=== PATIENT | male | born 1930 | race Caucasian/White ===

== ENCOUNTER 2016-12-02 15:45 | Emergency (ER) | payer OTHER, BC ==
[2016-12-02 16:06] VITALS: BP 116/78; PULSE 67; TEMP 97.8; BMI 31.5
--- NOTE | 2016-12-02 16:09 | PDOC ---
History of Present Illness - History of Present Illness Initial Comments: 12/02/16 16:18 The patient is an 86 year old male with a past medical history of hypertension, aortic stenosis( on aspirin), gout, referred to the emergency department by his primary physician Dr. Saunders, with a complaint of right foot swelling and redness for 5 days. Patient banged his ankle 4-5 days ago on carts at [employer]. Since banging his ankle , patient reports the pain and swelling had remained constant. Patient states that he developed redness two days ago which has somewhat improved on its own . Patient denies fever, chills, diaphoresis. Denies radiating pain up the leg or calf soreness. Edgar has been ambulating on his ankle with no assistive tools. Patient was scheduled to have a TAVR tomorrow PCP: Berny Saunders Office: <Issa Ortiz - Last Filed: 12/02/16 16:18> <Vandana Gan - Last Filed: 12/04/16 21:47> - General Chief Complaint: Redness To Affected Area Stated Complaint: RT FOOT SWELLING, REDNESS, H/O INJURY Time Seen by Provider: 12/02/16 16:03 Past History <Issa Ortiz - Last Filed: 12/02/16 16:18> - Past Medical History Cardiac Disorders: Yes (CAD) COPD: Yes (EMPHYSEMA) HTN: Yes Hypercholesterolemia: Yes Suicide Attempt (Hx): No - Surgical History Abdominal Surgery: Yes (HERNIA REPAIR) - Immunization History Td Vaccination: Yes - Psycho/Social/Smoking Cessation Hx Anxiety: No Suicidal Ideation: No Smoking Status: No Smoking History: Former smoker Have you smoked in the past 12 months: No Number of Cigarettes Smoked Daily: 0 If you are a former smoker, when did you quit?: 25 YEARS Information on smoking cessation initiated: No Hx Alcohol Use: Yes (occasional) Drug/Substance Use Hx: No Substance Use Type: None Hx Substance Use Treatment: No <Vandana Gan - Last Filed: 12/04/16 21:47> - Past Medical History Allergies/Adverse Reactions: Allergies Allergy/AdvReac Type Severity Reaction Status Date / Time Penicillins Allergy Severe anaphylaxis Verified 12/02/16 15:50 amoxicillin trihydrate Allergy Verified 12/02/16 15:50 [From Augmentin] potassium clavulanate Allergy Verified 12/02/16 15:50 [From Augmentin] dipyridamole [From Aggrenox] AdvReac unable to Verified 12/02/16 15:50 tolerate bactrim ds Allergy Intermediate Rash Uncoded 12/02/16 15:50 Home Medications: Ambulatory Orders Albuterol 0.083% Nebulizer Zoe [Ventolin 0.083% Nebulizer Soln -] 1 neb NEB QID 04/03/15 Budesonide/Formeterol Fumarate [SYMBICORT 160/4.5mcg -] 1 inh PO DAILY PRN 04/03 Tiotropium [place] [Spiriva] 1 inh IH DAILY 04/03/15 Clopidogrel Bisulfate [Plavix] 75 mg PO DAILY #7 tablet 11/11/16 Furosemide 40 mg PO 3tablets daily tablet 11/11/16 Rosuvastatin Calcium [Crestor] 20 mg PO DAILY tablet 11/11/16 Allopurinol [Zyloprim -] 200 mg PO DAILY 12/02/16 Aspirin [Aspirin EC] 81 mg PO DAILY 12/02/16 Potassium Chloride [K-Dur -] 10 meq PO DAILY 12/02/16 Tramadol HCl [Ultram] 50 mg PO TID PRN #10 tablet MDD 3 tabs 12/02/16 Review of Systems - Review of Systems Comments:: 12/02/16 16:19 GENERAL/CONSTITUTIONAL: No fever or chills. No weakness. HEAD, EYES, EARS, NOSE AND THROAT: No change in vision. No ear pain or discharge. No sore throat. CARDIOVASCULAR: No chest pain or shortness of breath. RESPIRATORY: No cough, wheezing, or hemoptysis. GASTROINTESTINAL: No nausea, vomiting, diarrhea or constipation. GENITOURINARY: No dysuria, frequency, or change in urination. MUSCULOSKELETAL: Yes: right ankle joint swelling or pain. No neck or back pain. SKIN: Yes: Right ankle redness No rash NEUROLOGIC: No headache, vertigo, loss of consciousness, or change in strength/ sensation. ENDOCRINE: No increased thirst. No abnormal weight change. HEMATOLOGIC/LYMPHATIC: No anemia, easy bleeding, or history of blood clots. ALLERGIC/IMMUNOLOGIC: No hives or skin allergy. <Issa Ortiz - Last Filed: 12/02/16 16:18> *Physical Exam - Vital Signs Last Vital Signs Temp Pulse Resp BP Pulse Ox 97.8 F 67 18 116/78 96 12/02/16 15:45 12/02/16 15:45 12/02/16 15:45 12/02/16 15:45 12/02/16 15:45 <Issa Ortiz - Last Filed: 12/02/16 16:18> - Vital Signs Last Vital Signs Temp Pulse Resp BP Pulse Ox 97.8 F 67 18 116/78 96 12/02/16 15:45 12/02/16 15:45 12/02/16 15:45 12/02/16 15:45 12/02/16 15:45 - Physical Exam Comments: GENERAL: Awake, alert, and fully oriented, in no acute distress HEAD: No signs of trauma EYES: PERRLA, EOMI, sclera anicteric, conjunctiva clear ENT: Auricles normal inspection, hearing grossly normal, nares patent, oropharynx clear without exudates. Moist mucosa NECK: Normal ROM, supple, no lymphadenopathy, JVD, or masses LUNGS: Breath sounds equal, clear to auscultation bilaterally. No wheezes, and no crackles HEART: Regular rate and rhythm, normal S1 and S2, no murmurs, rubs or gallops ABDOMEN: Soft, nontender, normoactive bowel sounds. No guarding, no rebound. No masses EXTREMITIES: Normal range of motion. No clubbing or cyanosis. No cords. +R foot erythema, ecchymosis to toes 2-5. +Tenderness to R lateral malleolus. NEUROLOGICAL: Cranial nerves II through XII grossly intact. Normal speech. + Antalgic gait. SKIN: Warm, Dry, normal turgor, no rashes or lesions noted. <Vandana Gan - Last Filed: 12/04/16 21:47> ED Treatment Course - LABORATORY CBC & Chemistry Diagram: 12/02/16 18:30 12/02/16 18:30 <Vandana Gan - Last Filed: 12/04/16 21:47> Medical Decision Making - Medical Decision Making 12/02/16 19:[address] Landry at shift change. Symptoms have been improving since the injury (the redness has receded), which would imply this is not a cellulitis. More likely to be a sprain or fx based on the ecchymosis noted in the toes. Still awaiting XR results. Labs with no white count. Will discuss with Dr. Saunders when XR reading is complete. <Vandana Gan - Last Filed: 12/04/16 21:47> *DC/Admit/Observation/Transfer - Attestations Scribe Attestion: 12/02/16 16:19 Documentation prepared by Issa Ortiz, acting as medical scheduler for Vandana Gan MD <Issa Ortiz - Last Filed: 12/02/16 16:18> <Vandana Gan - Last Filed: 12/04/16 21:47> Diagnosis at time of Disposition: Contusion of right ankle Qualifiers: Encounter type: initial encounter Qualified Code(s): S90.01XA - Contusion of right ankle, initial encounter Right ankle sprain Qualifiers: Encounter type: initial encounter Involved ligament of ankle: unspecified ligament Qualified Code(s): S93.401A - Sprain of unspecified ligament of right ankle, initial encounter - Discharge Dispostion Disposition: HOME Condition at time of disposition: Stable - Prescriptions Prescriptions: Tramadol HCl [Ultram] 50 mg PO TID PRN #10 tablet MDD 3 tabs PRN Reason: Severe Pain - Referrals Referrals: Berny Saunders MD [Primary Care Provider] - 3 days - Patient Instructions Printed Discharge Instructions: DI for Contusion Additional Instructions: forrest wrap during day/remove at night elevate right lower leg as much as possible return to ER if pain/swelling worsens followup with Dr Saunders within the next 2-3 days
[2016-12-02 18:47] LABS: BASOPHIL 1.8 % (0-2.0); EOSINOPHIL 2.9 % (0-4.5); MCH 29.1 pg (25.7-33.7); MCHC 33.4 g/dl (32.0-35.9); MEAN CELL VOLUME 87.1 fl (80-96); MEAN PLT VOLUME 9.1 fl (7.5-11.1); NEUTROPHILS 67.5 % (42.8-82.8); PLATELET COUNT 159 K/MM3 (134-434); RDW 13.5 % (11.9-15.9); WHITE BLOOD COUNT 8.9 K/mm3 (4.0-10.0)
[2016-12-02 18:59] LABS: ALBUMIN 3.8 g/dl (3.5-5.0); ALK PHOS 75 U/L (32-92); ANION GAP 5 (8-16); CALCIUM 10.2 mg/dl (8.4-10.2); CO2 31 mmol/L (22-28); CREATININE 0.9 mg/dl (0.6-1.3); GLUCOSE,RANDOM 170 mg/dl (74-106); SGOT/AST 30 U/L (10-42); SGPT/ALT 56 U/L (10-40); TOT PROT 6.9 g/dl (6.4-8.3)
--- NOTE | 2016-12-02 19:19 | PDOC ---
*Physical Exam - Vital Signs Last Vital Signs Temp Pulse Resp BP Pulse Ox 97.8 F 67 18 116/78 96 12/02/16 15:45 12/02/16 15:45 12/02/16 15:45 12/02/16 15:45 12/02/16 15:45 <Issa Ortiz - Last Filed: 12/02/16 20:20> - Vital Signs Last Vital Signs Temp Pulse Resp BP Pulse Ox 97.8 F 67 18 116/78 96 12/02/16 15:45 12/02/16 15:45 12/02/16 15:45 12/02/16 15:45 12/02/16 15:45 <Luanne Landry - Last Filed: 12/03/16 01:29> ED Treatment Course - LABORATORY CBC & Chemistry Diagram: 12/02/16 18:30 12/02/16 18:30 - ADDITIONAL ORDERS Additional order review: Laboratory Results 12/02/16 18:30 Sodium 133 L Potassium 3.6 Chloride 97 L Carbon Dioxide 31 H Anion Gap 5 L BUN 20 H Creatinine 0.9 Creat Clearance w eGFR > 60 Random Glucose 170 H Calcium 10.2 Total Bilirubin 2.0 H D AST 30 D ALT 56 H D Alkaline Phosphatase 75 D Total Protein 6.9 Albumin 3.8 12/02/16 18:30 RBC 5.37 MCV 87.1 MCHC 33.4 RDW 13.5 MPV 9.1 D Neutrophils % 67.5 Lymphocytes % 23.2 Monocytes % 4.6 Eosinophils % 2.9 Basophils % 1.8 - RADIOLOGY Radiology Studies Ordered: 12/02/16 20:20 RAD/ANKLE & FOOT-RIGHT Impression: No gross acute fracture or dislocation is identified. Soft tissue swelling Reported by Latasha Magaña <Issa Ortiz - Last Filed: 12/02/16 20:20> - LABORATORY CBC & Chemistry Diagram: 12/02/16 18:30 12/02/16 18:30 - ADDITIONAL ORDERS Additional order review: Laboratory Results 12/02/16 18:30 Sodium 133 L Potassium 3.6 Chloride 97 L Carbon Dioxide 31 H Anion Gap 5 L BUN 20 H Creatinine 0.9 Creat Clearance w eGFR > 60 Random Glucose 170 H Calcium 10.2 Total Bilirubin 2.0 H D AST 30 D ALT 56 H D Alkaline Phosphatase 75 D Total Protein 6.9 Albumin 3.8 12/02/16 18:30 RBC 5.37 MCV 87.1 MCHC 33.4 RDW 13.5 MPV 9.1 D Neutrophils % 67.5 Lymphocytes % 23.2 Monocytes % 4.6 Eosinophils % 2.9 Basophils % 1.8 <Luanne Landry - Last Filed: 12/03/16 01:29> Medical Decision Making - Medical Decision Making 12/02/16 20:17 PCP: Berny Saunders Office called at 19:41, will be paged PCP: Berny Saunders Office called at 20:00 will be paged PCP: Berny Saunders Cell phone called [phone]. Message left at 20:17 PCP: Berny Saunders called back, case discussed at 20:18 <Issa Ortiz - Last Filed: 12/02/16 20:20> - Medical Decision Making Laboratory values and x-ray results discussed with patient's PMD, Dr. Saunders. Although x-ray shows no evidence of fracture and WBC count is normal ( suggesting cellulitis not present), because the patient will not be able to ambulate normally after his cardiac surgery, Dr. Saunders recommending that patient postpone the surgery. He should continue to elevate the foot and follow-up with Dr. Saunders within the next 2-3 days. The patient asked for "stronger" pain medication then plain acetaminophen. Prescription for Ultram 50mg,(#10) to be used up to 3 times a day will be transmitted to patient's pharmacy. The patient should return to the ER if he has worsening pain/swelling/erythema of the foot. <Luanne Landry - Last Filed: 12/03/16 01:29> *DC/Admit/Observation/Transfer <Issa Ortiz - Last Filed: 12/02/16 20:20> <Luanne Landry - Last Filed: 12/03/16 01:29> Diagnosis at time of Disposition: Contusion of right ankle Qualifiers: Encounter type: initial encounter Qualified Code(s): S90.01XA - Contusion of right ankle, initial encounter Right ankle sprain Qualifiers: Encounter type: initial encounter Involved ligament of ankle: unspecified ligament Qualified Code(s): S93.401A - Sprain of unspecified ligament of right ankle, initial encounter - Discharge Dispostion Disposition: HOME Condition at time of disposition: Stable - Prescriptions Prescriptions: Tramadol HCl [Ultram] 50 mg PO TID PRN #10 tablet MDD 3 tabs PRN Reason: Severe Pain - Referrals Referrals: Berny Saunders MD [Primary Care Provider] - 3 days - Patient Instructions Printed Discharge Instructions: DI for Contusion Additional Instructions: forrest wrap during day/remove at night elevate right lower leg as much as possible return to ER if pain/swelling worsens followup with Dr Saunders within the next 2-3 days - Post Discharge Activity
== END 2016-12-02 20:32 | disposition home or self-care (01) ==
LOC: FER 15:45
DX: S93.401A Sprain of unspecified ligament of right ankle, initial encounter (principal); S90.01XA Contusion of right ankle, initial encounter; W22.8XXA Striking against or struck by other objects, initial encounter; Y93.9 Activity, unspecified; Y92.9 Unspecified place or not applicable; I10 Essential (primary) hypertension; I35.0 Nonrheumatic aortic (valve) stenosis; J44.9 Chronic obstructive pulmonary disease, unspecified; E78.00 Pure hypercholesterolemia, unspecified; Z87.891 Personal history of nicotine dependence; I25.10 Atherosclerotic heart disease of native coronary artery without angina pectoris
CPT/HCPCS: 36415; 73610-TC-RT; 73630-TC-RT; 80053; 85025; 87040; 99283-25

== ENCOUNTER 2016-12-13 16:28 | Inpatient (IN) | payer OTHER, BC ==
--- NOTE | 2016-12-13 16:37 | PDOC ---
History of Present Illness - General History Source: Patient, Family Exam Limitations: No Limitations - History of Present Illness Initial Comments: 12/13/16 16:54 The patient is a 86 year old male, with a significant past medical history of CAD, HTN, aortic stenosis, gout, Emphysema and HLD, who presents to the emergency department with right lower extremity swelling, pain and redness for the past 3 days. The patient is currently presenting in a wheelchair. The patient was last in the ED on 12/02/16 for the same symptoms, but they were not to this severity. The patient was discharged same day. He saw his PMD today who suggested he come to the ED for further evaluation. The patient denies chest pain, shortness of breath, headache and dizziness. Allergies: Aggrenox, augmentin, penicillin, bactrim Past surgical history: Abdominal hernia Social history: No alcohol, tobacco or drug use reported PMD - Dr. Berny Saunders <Jeremias Cevallos - Last Filed: 12/13/16 16:54> <Vandana Gan - Last Filed: 12/14/16 11:23> - General Chief Complaint: Edema Stated Complaint: RT LEG SWELLING, REDNESS Time Seen by Provider: 12/13/16 16:32 Past History <Jeremias Cevallos - Last Filed: 12/13/16 16:54> - Past Medical History Cardiac Disorders: Yes (CAD) COPD: Yes (EMPHYSEMA) HTN: Yes Hypercholesterolemia: Yes Suicide Attempt (Hx): No - Surgical History Abdominal Surgery: Yes (HERNIA REPAIR) - Immunization History Td Vaccination: Yes - Psycho/Social/Smoking Cessation Hx Anxiety: No Suicidal Ideation: No Smoking Status: No Smoking History: Former smoker Have you smoked in the past 12 months: No Number of Cigarettes Smoked Daily: 0 If you are a former smoker, when did you quit?: 25 YEARS Information on smoking cessation initiated: No Hx Alcohol Use: Yes (occasional) Drug/Substance Use Hx: No Substance Use Type: None Hx Substance Use Treatment: No <Vandana Gan - Last Filed: 12/14/16 11:23> - Past Medical History Allergies/Adverse Reactions: Allergies Allergy/AdvReac Type Severity Reaction Status Date / Time Penicillins Allergy Severe anaphylaxis Verified 12/02/16 15:50 amoxicillin trihydrate Allergy Verified 12/02/16 15:50 [From Augmentin] potassium clavulanate Allergy Verified 12/02/16 15:50 [From Augmentin] dipyridamole [From Aggrenox] AdvReac unable to Verified 12/02/16 15:50 tolerate bactrim ds Allergy Intermediate Rash Uncoded 12/02/16 15:50 Home Medications: Ambulatory Orders Albuterol 0.083% Nebulizer Zoe [Ventolin 0.083% Nebulizer Soln -] 1 neb NEB QID 04/03/15 Budesonide/Formeterol Fumarate [SYMBICORT 160/4.5mcg -] 1 inh PO DAILY PRN 04/03 Tiotropium [place] [Spiriva] 1 inh IH DAILY 04/03/15 Clopidogrel Bisulfate [Plavix] 75 mg PO DAILY #7 tablet 11/11/16 Furosemide 40 mg PO 3tablets daily tablet 11/11/16 Rosuvastatin Calcium [Crestor] 20 mg PO DAILY tablet 11/11/16 Allopurinol [Zyloprim -] 200 mg PO DAILY 12/02/16 Aspirin [Aspirin EC] 81 mg PO DAILY 12/02/16 Potassium Chloride [K-Dur -] 10 meq PO DAILY 12/02/16 Review of Systems - Review of Systems Able to Perform ROS?: Yes Comments:: 12/13/16 16:54 GENERAL/CONSTITUTIONAL: No fever or chills. No weakness. HEAD, EYES, EARS, NOSE AND THROAT: No change in vision. No ear pain or discharge. No sore throat. CARDIOVASCULAR: No chest pain or shortness of breath RESPIRATORY: No cough, wheezing, or hemoptysis. GASTROINTESTINAL: No nausea, vomiting, diarrhea or constipation. GENITOURINARY: No dysuria, frequency, or change in urination. MUSCULOSKELETAL: No joint or muscle swelling or pain. No neck or back pain. EXTREMITIES: +Right lower extremity erythema, pain and swelling SKIN: No rash NEUROLOGIC: No headache, vertigo, loss of consciousness, or change in strength/ sensation. ENDOCRINE: No increased thirst. No abnormal weight change HEMATOLOGIC/LYMPHATIC: No anemia, easy bleeding, or history of blood clots. ALLERGIC/IMMUNOLOGIC: No hives or skin allergy. <Jeremias Cevallos - Last Filed: 12/13/16 16:54> *Physical Exam - Vital Signs Last Vital Signs Temp Pulse Resp BP Pulse Ox 98.1 F 63 18 111/72 96 12/13/16 16:28 12/13/16 16:28 12/13/16 16:28 12/13/16 16:28 12/13/16 16:28 <MartJeremiasarslan Doylee - Last Filed: 12/13/16 16:54> - Vital Signs Last Vital Signs Temp Pulse Resp BP Pulse Ox 98.1 F 63 18 111/72 96 12/13/16 16:28 12/13/16 16:28 12/13/16 16:28 12/13/16 16:28 12/13/16 16:28 - Physical Exam Comments: GENERAL: Awake, alert, and fully oriented, in no acute distress HEAD: No signs of trauma EYES: PERRLA, EOMI, sclera anicteric, conjunctiva clear ENT: Auricles normal inspection, hearing grossly normal, nares patent, oropharynx clear without exudates. Moist mucosa NECK: Normal ROM, supple, no lymphadenopathy, JVD, or masses LUNGS: Breath sounds equal, clear to auscultation bilaterally. No wheezes, and no crackles HEART: Regular rate and rhythm, normal S1 and S2, no murmurs, rubs or gallops ABDOMEN: Soft, nontender, normoactive bowel sounds. No guarding, no rebound. No masses EXTREMITIES: Normal range of motion. 3+ pitting edema to RLE with erythema to the foot and ankle. NEUROLOGICAL: Cranial nerves II through XII grossly intact. Normal speech, normal gait SKIN: Warm, Dry, normal turgor, no rashes or lesions noted. <Vandana Gan - Last Filed: 12/14/16 11:23> ED Treatment Course - LABORATORY CBC & Chemistry Diagram: 12/14/16 07:32 12/14/16 07:32 <Vandana Gan - Last Filed: 12/14/16 11:23> Medical Decision Making - Medical Decision Making Patient is known to me from a prior ED visit where he presented with foot redness and swelling after hit by a grocery cart. At the time, the redness was receding, but now it has been increasing, spreading up his yancey, with increasing swelling as well. +Tenderness to palpation. On prior visit, the history was not typical for cellulitis (it had been improving), but now with the worsening redness, higher suspicion. DVT study was negative. Also, he had an outpatient MRI that only showed edema (no ortho injuries). Will treat with vanco and admit. <Vandana Gan - Last Filed: 12/14/16 11:23> *DC/Admit/Observation/Transfer - Attestations Scribe Attestion: 12/13/16 16:54 Documentation prepared by Jeremias Cevallos, acting as bilingual medical assistant for Vandana Gan MD <Jeremias Cevallos - Last Filed: 12/13/16 16:54> - Discharge Dispostion Admit: Yes <Vandana aGn - Last Filed: 12/14/16 11:23> Diagnosis at time of Disposition: Cellulitis Qualifiers: Site of cellulitis: extremity Site of cellulitis of extremity: lower extremity Laterality: right Qualified Code(s): L03.115 - Cellulitis of right lower limb - Discharge Dispostion Condition at time of disposition: Stable - Referrals
[2016-12-13 17:13] LABS: BASOPHIL 0.9 % (0-2.0); MCH 28.2 pg (25.7-33.7); MCHC 32.7 g/dl (32.0-35.9); MEAN CELL VOLUME 86.2 fl (80-96); NEUTROPHILS 70.6 % (42.8-82.8); PLATELET COUNT 181 K/MM3 (134-434); RDW 13.2 % (11.9-15.9); WHITE BLOOD COUNT 6.8 K/mm3 (4.0-10.0)
[2016-12-13 17:25] LABS: ACTIVATED PTT 30.1 SECONDS (24.0-38.9)
[2016-12-13 17:26] LABS: ALBUMIN 3.5 g/dl (3.5-5.0); BILIRUBIN,TOTAL 0.7 mg/dl (0.2-1.0); CALCIUM 9.7 mg/dl (8.4-10.2); CREATININE 1.2 mg/dl (0.6-1.3); TOT PROT 6.5 g/dl (6.4-8.3)
[2016-12-13 17:29] LABS: INR 1.04 (0.82-1.09); PROTHROMBIN TIME (PATIENT) 11.6 SEC (10.2-13.0)
[2016-12-13] MEDS ORDERED: VANCOMYCIN 1,000 MG in DEXTROSE 5%-WATER - 250 ML IVPB ONE (17:36)
[2016-12-13] MEDS ORDERED: INSULIN REGULAR HUMAN 100 UNITS/ML *VIAL SQ ONE (17:43)
[2016-12-13] MEDS ORDERED: INSULIN REGULAR HUMAN 100 UNITS/ML *VIAL ONE (17:50)
[2016-12-13] MEDS ORDERED: VANCOMYCIN 1,000 MG VIAL (RESTRICTED TO ID ONLY) ONE (17:50)
[2016-12-13] MEDS ORDERED: HEMOQUE TEST 1 EACH EACH ONE (18:32)
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
[2016-12-13 22:03] VITALS: BMI 33.2
[2016-12-13] MEDS: HEPARIN NA (PORCINE) 5,000 UNITS/ML 1ML VIAL SQ SCH (22:43)
[2016-12-13] MEDS ORDERED: diphenhydrAMINE HCL 25 MG CAPSULE (FP) PO ONE (23:44)
[2016-12-14] MEDS: HEPARIN NA (PORCINE) 5,000 UNITS/ML 1ML VIAL SQ SCH (05:55)
[2016-12-14] MEDS ORDERED: FUROSEMIDE 40 MG TABLET (FP) PO SCH (07:15)
[2016-12-14] MEDS: FUROSEMIDE 40 MG TABLET (FP) PO SCH (09:06)
[2016-12-14] MEDS: ALLOPURINOL 100 MG TABLET (FP) PO SCH (09:07)
[2016-12-14] MEDS: TIOTROPIUM BROMIDE 18 MCG/INH (DEVICE W/ 5 CAPSULES) IH SCH (09:07)
[2016-12-14] MEDS: POTASSIUM CHLORIDE TABS 10 MEQ TABLET.ER (FP) PO SCH (09:07)
[2016-12-14] MEDS: CLOPIDOGREL BISULFATE 75 MG TABLET (FP) PO SCH (09:07)
[2016-12-14] MEDS: ASPIRIN COATED 81 MG TABLET.EC PO SCH (09:07)
[2016-12-14 09:08] LABS: BASOPHIL 0.9 % (0-2.0); EOSINOPHIL 3.9 % (0-4.5); MCHC 33.5 g/dl (32.0-35.9); MEAN CELL VOLUME 86.5 fl (80-96); MEAN PLT VOLUME 9.3 fl (7.5-11.1); NEUTROPHILS 60.2 % (42.8-82.8); PLATELET COUNT 170 K/MM3 (134-434); WHITE BLOOD COUNT 6.3 K/mm3 (4.0-10.0)
[2016-12-14 09:17] LABS: CALCIUM 9.6 mg/dl (8.4-10.2)
--- NOTE | 2016-12-14 09:43 | PN ---
Progress Note (short form) - Note Progress Note: ID Consult dictated Cellulitis R LE Possible infected hematoma R LE Valvular heart disease PCN allergy Obtain BC Empiric vancomycin Elevation
[2016-12-14] MEDS ORDERED: VANCOMYCIN 1,250 MG in DEXTROSE 5%-WATER - 250 ML IVPB ONE (10:00)
[2016-12-14] MEDS ORDERED: VANCOMYCIN 1,250 MG in DEXTROSE 5%-WATER - 250 ML IVPB SCH (10:00)
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
[2016-12-14] MEDS: VANCOMYCIN 1,000 MG in DEXTROSE 5%-WATER - 250 ML IVPB SCH ×2 (11:51→21:56)
[2016-12-14] MEDS: ALBUTEROL SO4 0.083% IH SOL 2.5 MG/3 ML VIAL.NEB. NEB SCH ×2 (11:55→17:42)
--- NOTE | 2016-12-14 12:33 | PN ---
Physical Exam: SUBJECTIVE: Patient seen and examined oob to chair. One month ago had 2 stents placed. Then had to postpone scheduled aortic valve replacement due to cellulitis. Expresses deep frustration with medical condition and feels he should have been started on antibiotics much sooner. States swelling in leg has improved. OBJECTIVE: Vital Signs Period Temp Pulse Resp BP Sys/Garcia Pulse Ox Last 24 Hr 97.5 F-98.4 F 52-63 16-18 127-147/76-78 95-98 GENERAL: The patient is awake, alert, and fully oriented, in no acute distress. HEAD: Normal with no signs of trauma. EYES: PERRL, extraocular movements intact, sclera anicteric, conjunctiva clear. No ptosis. LUNGS: Breath sounds CTA HEART: Regular rate and rhythm, S1, S2 without murmur, rub or gallop. ABDOMEN: Soft, nontender, nondistended, normoactive bowel sounds, no guarding, no rebound RLE: 2+edema, erythema, area of fluctuance lateral malleolus, +tender NEUROLOGICAL: Cranial nerves II through XII grossly intact. Normal speech, gait not observed. Laboratory Results - last 24 hr 12/14/16 12/14/16 07:32 07:32 WBC 6.3 RBC 4.52 Hgb 13.1 Hct 39.2 MCV 86.5 MCHC 33.5 RDW 13.0 Plt Count 170 MPV 9.3 Neutrophils % 60.2 Lymphocytes % 26.8 D Monocytes % 8.2 Eosinophils % 3.9 Basophils % 0.9 Sodium 140 Potassium 3.9 Chloride 104 Carbon Dioxide 28 Anion Gap 8 BUN 22 H Creatinine 1.0 Random Glucose 135 H D Calcium 9.6 Active Medications Generic Name Dose Route Start Last Admin Trade Name Freq PRN Reason Stop Dose Admin Albuterol Sulfate 1 amp 12/14/16 12:00 12/14/16 11:55 Ventolin 0.083% Nebulizer Soln - NEB 1 amp QIDR [facility]TON Administration Allopurinol 200 mg 12/14/16 10:00 12/14/16 09:07 Zyloprim - PO 200 mg DAILY [facility] Administration Aspirin 81 mg 12/14/16 10:00 12/14/16 09:07 Ecotrin - PO 81 mg DAILY [facility] Administration Clopidogrel Bisulfate 75 mg 12/14/16 10:00 03/18/17 09:07 Plavix - PO 75 mg DAILY [facility] Administration Furosemide 120 mg 12/14/16 10:00 12/14/16 09:06 Lasix - PO 120 mg DAILY [facility] Administration Vancomycin HCl 1,000 mg/ 250 mls @ 200 mls/hr 12/14/16 09:45 12/14/16 11:51 Dextrose IVPB Not Given Q12H [facility] Potassium Chloride 10 meq 12/14/16 10:00 12/14/16 09:07 K-Dur - PO 10 meq DAILY [facility] Administration Rosuvastatin Calcium 20 mg 12/14/16 22:00 Crestor - PO HS COLTON Tiotropium [place] 1 puff 12/14/16 10:00 12/14/16 09:07 Spiriva - IH 1 pfu DAILY [facility] Administration 12/09/16 MRI RLE: cellulitis; hematoma, infection cannot be excluded ASSESSMENT/PLAN: 86 year-old man with a PMH of HTN, HLD, CAD x 2 stents, aortic stenosis, emphysema, and gout. Admitted for RLE cellulitis. RLE cellulitis --area of fluctuance on lateral aspect which clinically corresponds to hematoma seen on MRI, possible collection --continue Vanc --ID following CAD s/p stents x 2 --continue ASA, Plavix Aortic stenosis --scheduled AVR was postponed due to current infection Hypertension --BP well-controlled --continue home dose Lasix PO 120mg daily, K-dur Hyperlipidemia --continue Crestor COPD/Emphysema --continue Spiriva, nebs Gout --continue allopurinol NIDDM --HgbA1C 8.7 --Novolog sliding scale F/E/N Fluids: PO intake adequate Electrolytes: replete as indicated Nutrition: diabetic, low sodium diet DVT prophylaxis: subq heparin PT evaluation Dispo: continues to require inpatient care. Full Code. Visit type - Emergency Visit Emergency Visit: Yes ED Registration Date: 12/13/16 Care time: The patient presented to the Emergency Department on the above date and was hospitalized for further evaluation of their emergent condition. - New Patient This patient is new to me today: Yes Date on this admission: 12/14/16 - Critical Care Critical Care patient: No
[2016-12-14] MEDS ORDERED: ACETAMINOPHEN 325 MG TABLET (FP) PO PRN (20:29)
[2016-12-14] MEDS: ROSUVASTATIN CA 20 MG TABLET (FP) PO SCH (21:56)
[2016-12-15] MEDS: ALBUTEROL SO4 0.083% IH SOL 2.5 MG/3 ML VIAL.NEB. NEB SCH ×4 (00:20→18:43)
[2016-12-15] MEDS ORDERED: PT OWN MED DRAWER 7, Y5N ONE (09:49)
[2016-12-15 09:52] LABS: BASOPHIL 0.3 % (0-2.0); EOSINOPHIL 3.7 % (0-4.5); MCH 28.8 pg (25.7-33.7); MCHC 32.9 g/dl (32.0-35.9); MEAN CELL VOLUME 87.5 fl (80-96); MEAN PLT VOLUME 9.6 fl (7.5-11.1); PLATELET COUNT 167 K/MM3 (134-434); RDW 13.2 % (11.9-15.9); WHITE BLOOD COUNT 6.5 K/mm3 (4.0-10.0)
--- NOTE | 2016-12-15 09:58 | PN ---
Physical Exam: SUBJECTIVE: Patient seen and examined. Complains of unremitting 5/10 throbbing pain x 18 days right lateral malleolus. Antibiotics have not alleviated the pain. OBJECTIVE: Vital Signs Period Temp Pulse Resp BP Sys/Garcia Pulse Ox Last 24 Hr 97.9 F-98.6 F 60-98 17-19 124-165/66-75 95-97 GENERAL: The patient is awake, alert, and fully oriented, in no acute distress. HEAD: Normal with no signs of trauma. EYES: PERRL, extraocular movements intact, sclera anicteric, conjunctiva clear. No ptosis. LUNGS: Breath sounds CTA HEART: Regular rate and rhythm, S1, S2 without murmur, rub or gallop. ABDOMEN: Soft, nontender, nondistended, normoactive bowel sounds, no guarding, no rebound RLE: 2+edema, erythema is improved since yesterday, but area over lateral malleolus exquistely tender and mildly fluctuant NEUROLOGICAL: Cranial nerves II through XII grossly intact. Normal speech, gait not observed. Laboratory Results - last 24 hr 12/14/16 12/15/16 17:38 06:00 WBC 6.5 RBC 4.73 Hgb 13.6 Hct 41.3 MCV 87.5 MCHC 32.9 RDW 13.2 Plt Count 167 MPV 9.6 Neutrophils % 58.0 Lymphocytes % 28.8 Monocytes % 9.2 Eosinophils % 3.7 Basophils % 0.3 POC Glucometer 261 Active Medications Generic Name Dose Route Start Last Admin Trade Name Freq PRN Reason Stop Dose Admin Acetaminophen 650 mg 12/14/16 20:29 12/15/16 07:55 Tylenol - PO 650 mg Q6H PRN Administration FEVER OR PAIN Albuterol Sulfate 1 amp 12/14/16 12:00 12/15/16 06:31 Ventolin 0.083% Nebulizer Soln - NEB 1 amp QIDR [facility] Administration Allopurinol 200 mg 12/14/16 10:00 12/14/16 09:07 Zyloprim - PO 200 mg DAILY [facility] Administration Aspirin 81 mg 12/14/16 10:00 12/14/16 09:07 Ecotrin - PO 81 mg DAILY [facility] Administration Clopidogrel Bisulfate 75 mg 12/14/16 10:00 12/14/16 09:07 Plavix - PO 75 mg DAILY [facility] Administration Furosemide 120 mg 12/14/16 10:00 12/14/16 09:06 Lasix - PO 120 mg DAILY [facility] Administration Heparin Sodium (Porcine) 5,000 unit 12/15/16 10:00 Heparin - SQ BID [facility] Vancomycin HCl 1,000 mg/ 250 mls @ 200 mls/hr 12/14/16 09:45 12/14/16 21:56 Dextrose IVPB 200 mls/hr Q12H [facility] Administration Potassium Chloride 10 meq 12/14/16 10:00 12/14/16 09:07 K-Dur - PO 10 meq DAILY [facility] Administration Rosuvastatin Calcium 20 mg 12/14/16 22:00 12/14/16 21:56 Crestor - PO 20 mg HS [facility] Administration Tiotropium [place] 1 puff 12/14/16 10:00 12/14/16 09:07 Spiriva - IH 1 pfu DAILY [facility] Administration 12/09/16 MRI RLE: cellulitis; hematoma, infection cannot be excluded ASSESSMENT/PLAN: 86 year-old man with a PMH of HTN, HLD, CAD x 2 stents, aortic stenosis, emphysema, and gout. Admitted for RLE cellulitis. RLE cellulitis --area of fluctuance on lateral aspect which clinically corresponds to hematoma seen on MRI, possibly infected collection; remains exquisitely tender; placed order for IR consult/guided aspiration --continue Vanc --ID following CAD s/p stents x 2 --continue ASA, Plavix Aortic stenosis --scheduled AVR was postponed due to current infection Hypertension --BP well-controlled --continue home dose Lasix PO 120mg daily, K-dur Hyperlipidemia --continue Crestor COPD/Emphysema --continue Spiriva, nebs Gout --continue allopurinol NIDDM --HgbA1C 8.7 --Novolog sliding scale F/E/N Fluids: PO intake adequate Electrolytes: replete as indicated Nutrition: diabetic, low sodium diet DVT prophylaxis: subq heparin PT evaluation Dispo: continues to require inpatient care. Full Code. Visit type - Emergency Visit Emergency Visit: Yes ED Registration Date: 12/13/16 Care time: The patient presented to the Emergency Department on the above date and was hospitalized for further evaluation of their emergent condition. - New Patient This patient is new to me today: No - Critical Care Critical Care patient: No
[2016-12-15 10:06] LABS: ALBUMIN 3.2 g/dl (3.5-5.0); ALK PHOS 63 U/L (32-92); ANION GAP 8 (8-16); CALCIUM 9.7 mg/dl (8.4-10.2); CO2 28 mmol/L (22-28); CREATININE 0.9 mg/dl (0.6-1.3); GLUCOSE,RANDOM 183 mg/dl (74-106); MAGNESIUM 1.9 mg/dL (1.8-2.4); SGOT/AST 33 U/L (10-42); SGPT/ALT 30 U/L (10-40)
[2016-12-15] MEDS: VANCOMYCIN 1,000 MG in DEXTROSE 5%-WATER - 250 ML IVPB SCH ×2 (10:13→21:25)
[2016-12-15] MEDS: FUROSEMIDE 40 MG TABLET (FP) PO SCH (10:14)
[2016-12-15] MEDS: POTASSIUM CHLORIDE TABS 10 MEQ TABLET.ER (FP) PO SCH (10:14)
[2016-12-15] MEDS: CLOPIDOGREL BISULFATE 75 MG TABLET (FP) PO SCH (10:14)
[2016-12-15] MEDS: ASPIRIN COATED 81 MG TABLET.EC PO SCH (10:14)
[2016-12-15] MEDS: HEPARIN NA (PORCINE) 5,000 UNITS/ML 1ML VIAL SQ SCH ×2 (10:15→21:24)
[2016-12-15] MEDS: TIOTROPIUM BROMIDE 18 MCG/INH (DEVICE W/ 5 CAPSULES) IH SCH (10:16)
[2016-12-15] MEDS: ALLOPURINOL 100 MG TABLET (FP) PO SCH (10:21)
--- NOTE | 2016-12-15 10:38 | PN ---
Progress Note, Physician History of Present Illness: OOB in chair with LE elevated C/O pain at lateral aspect of distal R LE No c/o fever/ chills Tolerating antibiotics - Current Medication List Current Medications: Active Medications Acetaminophen (Tylenol -) 650 mg PO Q6H PRN PRN Reason: FEVER OR PAIN Last Admin: 12/15/16 07:55 Dose: 650 mg Albuterol Sulfate (Ventolin 0.083% Nebulizer Soln -) 1 amp NEB QIDR [facility] Last Admin: 12/15/16 06:31 Dose: 1 amp Allopurinol (Zyloprim -) 200 mg PO DAILY [facility] Last Admin: 12/15/16 10:21 Dose: Not Given Aspirin (Ecotrin -) 81 mg PO DAILY [facility] Last Admin: 12/15/16 10:14 Dose: 81 mg Clopidogrel Bisulfate (Plavix -) 75 mg PO DAILY [facility] Last Admin: 12/15/16 10:14 Dose: 75 mg Furosemide (Lasix -) 120 mg PO DAILY [facility] Last Admin: 12/15/16 10:14 Dose: 120 mg Heparin Sodium (Porcine) (Heparin -) 5,000 unit SQ BID [facility] Last Admin: 12/15/16 10:15 Dose: Not Given Vancomycin HCl 1,000 mg/ (Dextrose) 250 mls @ 200 mls/hr IVPB Q12H [facility] Last Admin: 12/15/16 10:13 Dose: 200 mls/hr Potassium Chloride (K-Dur -) 10 meq PO DAILY [facility] Last Admin: 12/15/16 10:14 Dose: 10 meq Rosuvastatin Calcium (Crestor -) 20 mg PO HS [facility] Last Admin: 12/14/16 21:56 Dose: 20 mg Tiotropium [place] (Spiriva -) 1 puff IH DAILY [facility] Last Admin: 12/15/16 10:16 Dose: 1 puff - Objective Vital Signs: Vital Signs Temperature 98.1 F 12/15/16 06:00 Pulse Rate 66 12/15/16 06:00 Respiratory Rate 19 12/15/16 06:00 Blood Pressure 138/73 12/15/16 06:00 O2 Sat by Pulse Oximetry (%) 96 12/15/16 06:00 Constitutional: Yes: No Distress Eyes: Yes: Conjunctiva Clear Cardiovascular: Yes: Regular Rate and Rhythm, S1, S2 Respiratory: Yes: CTA Bilaterally Gastrointestinal: Yes: Normal Bowel Sounds, Soft. No: Tenderness Extremities: Yes: Other (decreased swelling/ erythema/ warmth R LE + tenderness lateral aspect distal R LE) Labs: CBC, BMP 12/15/16 06:00 12/15/16 06:00 INR, PTT INR 1.04 (0.82-1.09) 12/13/16 17:07 Assessment/Plan Cellulitis R LE Hematoma s/p injury Valvular heart disease, awaiting TAVR PCN allergy Cellulitis appears 50% better Continue vancomycin, elevation Check vancomycin level
[2016-12-15] MEDS ORDERED: OXYCODONE/APAP 5/325MG COMBO TABLET PO PRN (13:12)
[2016-12-15] MEDS ORDERED: OXYCODONE/APAP 5/325MG COMBO TABLET PO STA (13:33)
[2016-12-15] MEDS: ROSUVASTATIN CA 20 MG TABLET (FP) PO SCH (21:24)
[2016-12-15] MEDS: POLYETHYLENE GLYCOL 3350 119 GM BTL PO SCH (21:24)
[2016-12-15] MEDS ORDERED: DOCUSATE SODIUM 100 MG CAPSULE (FP) PO SCH (22:00)
[2016-12-16] MEDS: ALBUTEROL SO4 0.083% IH SOL 2.5 MG/3 ML VIAL.NEB. NEB SCH ×4 (00:50→17:36)
[2016-12-16 06:41] VITALS: BP 137/66; PULSE 61; TEMP 97.8
--- NOTE | 2016-12-16 09:06 | PN ---
[id number] patient is a 86 year-old man with a PMH of HTN, HLD, CAD x 2 stents, aortic stenosis, emphysema, and gout. Admitted for RLE cellulitis. Vital Signs Period Temp Pulse Resp BP Sys/Garcia Pulse Ox Last 24 Hr 97.6 F-98.4 F 61-63 18-19 116-137/66-77 94-96 GENERAL: The patient is awake, alert, and fully oriented, in no acute distress. HEAD: Normal with no signs of trauma. EYES: PERRL, extraocular movements intact, sclera anicteric, conjunctiva clear. No ptosis. ENT: Ears normal, nares patent, oropharynx clear without exudates, moist mucous membranes. NECK: Trachea midline, full range of motion, supple. LUNGS: Breath sounds equal, clear to auscultation bilaterally, no wheezes, no crackles, no accessory muscle use. HEART: Regular rate and rhythm, S1, S2, 4/6 systolic with bruit, no rub or gallop. ABDOMEN: Soft, nontender, nondistended, normoactive bowel sounds, no guarding, no rebound, no hepatosplenomegaly, no masses. EXTREMITIES: 2+ pulses, warm, well-perfused, no edema. RIGHT LOWER EXTREMITY: 3 cm of fluctance noted to the right lateral malleus with 2cm of induration and 5cm of erythema NEUROLOGICAL: Cranial nerves II through XII grossly intact. Normal speech, gait not observed. PSYCH: Normal mood, normal affect. SKIN: Warm, dry, normal turgor, no rashes or lesions noted Laboratory Results - last 24 hr 12/15/16 12/15/16 06:00 06:00 WBC 6.5 RBC 4.73 Hgb 13.6 Hct 41.3 MCV 87.5 MCHC 32.9 RDW 13.2 Plt Count 167 MPV 9.6 Neutrophils % 58.0 Lymphocytes % 28.8 Monocytes % 9.2 Eosinophils % 3.7 Basophils % 0.3 Sodium 137 Potassium 3.7 Chloride 101 Carbon Dioxide 28 Anion Gap 8 BUN 18 Creatinine 0.9 Creat Clearance w eGFR > 60 Random Glucose 183 H D Calcium 9.7 Magnesium 1.9 Total Bilirubin 1.0 D AST 33 ALT 30 Alkaline Phosphatase 63 Total Protein 6.0 L Albumin 3.2 L Active Medications Generic Name Dose Route Start Last Admin Trade Name Freq PRN Reason Stop Dose Admin Acetaminophen 650 mg 12/14/16 20:29 12/15/16 07:55 Tylenol - PO 650 mg Q6H PRN Administration FEVER OR PAIN Albuterol Sulfate 1 amp 12/14/16 12:00 12/16/16 06:52 Ventolin 0.083% Nebulizer Soln - NEB 1 amp QIDR [facility] Administration Allopurinol 200 mg 12/14/16 10:00 12/15/16 10:21 Zyloprim - PO Not Given DAILY [facility] Aspirin 81 mg 12/14/16 10:00 12/15/16 10:14 Ecotrin - PO 81 mg DAILY [facility] Administration Clopidogrel Bisulfate 75 mg 12/14/16 10:00 12/15/16 10:14 Plavix - PO 75 mg DAILY [facility] Administration Docusate Sodium 300 mg 12/15/16 22:00 12/15/16 21:24 Colace - PO 300 mg HS [facility] Administration Furosemide 120 mg 12/14/16 10:00 12/15/16 10:14 Lasix - PO 120 mg DAILY [facility] Administration Heparin Sodium (Porcine) 5,000 unit 12/15/16 10:00 12/15/16 21:24 Heparin - SQ 5,000 unit BID [facility] Administration Vancomycin HCl 1,000 mg/ 250 mls @ 200 mls/hr 12/14/16 09:45 12/15/16 21:25 Dextrose IVPB 200 mls/hr Q12H [facility] Administration Insulin Aspart 1 vial 12/16/16 11:00 Novolog Vial Sliding Scale - SQ ACHS [facility] Protocol Oxycodone/Acetaminophen 1 combo 12/15/16 13:12 12/15/16 21:31 Percocet 5/325 - PO 1 combo Q4H PRN Administration PAIN LEVEL 6-10 Polyethylene Glycol 17 gm 12/15/16 22:00 12/15/16 21:24 Miralax (For Daily Use) - PO 17 gm BID [facility] Administration Potassium Chloride 10 meq 12/14/16 10:00 12/15/16 10:14 K-Dur - PO 10 meq DAILY [facility] Administration Rosuvastatin Calcium 20 mg 12/14/16 22:00 12/15/16 21:24 Crestor - PO 20 mg HS [facility] Administration Tiotropium [place] 1 puff 12/14/16 10:00 12/15/16 10:16 Spiriva - IH 1 puff DAILY [facility] Administration Microbiology 12/14/16 11:20 Blood - Peripheral Venous Blood Culture - Preliminary NO GROWTH OBTAINED AFTER 48 HOURS, INCUBATION TO CONTINUE FOR 3 DAYS. 12/14/16 11:19 Blood - Peripheral Venous Blood Culture - Preliminary NO GROWTH OBTAINED AFTER 48 HOURS, INCUBATION TO CONTINUE FOR 3 DAYS. ASSESSMENT/PLAN: 1) ID: RLE cellulitis - Vancomycin as per ID, patient will require a PICC line for long-term antibiotics, PICC line ordered - case discussed with INR Dr. Rubio, does not recommend needle aspiration at this time, orthopedist Dr. Glover consulted, I&D of hematoma completed at bedside by Dr. Glover culture sent - ID consulted and following 2) cardiology CAD s/p stents x 2 -continue ASA, Plavix Aortic stenosis -scheduled AVR was postponed due to current infection, continue lasix 120mg daily (home dose) Hypertension -BP well-controlled Hyperlipidemia --continue Crestor 3) pulm COPD/Emphysema -continue Spiriva, prn albuterol nebs 4) MS Gout -continue allopurinol 5) endo: NIDDM -HgbA1C 8.7, continue fingersticks before meals and at bedtime with NovoLog sliding scale F/E/N Fluids: PO intake adequate Electrolytes: replete as indicated Nutrition: diabetic, low sodium diet DVT prophylaxis: subq heparin PT evaluation Dispo: continues to require inpatient care. Full Code. Visit type - Emergency Visit Emergency Visit: Yes ED Registration Date: 12/13/16 Care time: The patient presented to the Emergency Department on the above date and was hospitalized for further evaluation of their emergent condition. - New Patient This patient is new to me today: Yes Date on this admission: 12/16/16 - Critical Care Critical Care patient: No - Discharge Referral Referred to [facility] No
[2016-12-16] MEDS ORDERED: PT OWN MED DRAWER 7, Y5N ONE (09:46)
[2016-12-16] MEDS ORDERED: PICC LINE 8 ML FLUSH PROTOCOL IVPUSH PRN (09:48)
[2016-12-16] MEDS: CLOPIDOGREL BISULFATE 75 MG TABLET (FP) PO SCH (09:53)
[2016-12-16] MEDS: ASPIRIN COATED 81 MG TABLET.EC PO SCH (09:53)
[2016-12-16] MEDS: FUROSEMIDE 40 MG TABLET (FP) PO SCH (09:54)
[2016-12-16] MEDS: ALLOPURINOL 100 MG TABLET (FP) PO SCH (09:54)
[2016-12-16] MEDS: POTASSIUM CHLORIDE TABS 10 MEQ TABLET.ER (FP) PO SCH (09:55)
[2016-12-16] MEDS: HEPARIN NA (PORCINE) 5,000 UNITS/ML 1ML VIAL SQ SCH (09:55)
[2016-12-16] MEDS: TIOTROPIUM BROMIDE 18 MCG/INH (DEVICE W/ 5 CAPSULES) IH SCH (09:56)
[2016-12-16] MEDS: POLYETHYLENE GLYCOL 3350 119 GM BTL PO SCH (09:56)
--- NOTE | 2016-12-16 09:59 | PN ---
Progress Note, Physician History of Present Illness: Reports continued R distal LE pain No fever/chills Tolerating antibiotics - Current Medication List Current Medications: Active Medications Acetaminophen (Tylenol -) 650 mg PO Q6H PRN PRN Reason: FEVER OR PAIN Last Admin: 12/15/16 07:55 Dose: 650 mg Albuterol Sulfate (Ventolin 0.083% Nebulizer Soln -) 1 amp NEB QIDR [facility] Last Admin: 12/16/16 06:52 Dose: 1 amp Allopurinol (Zyloprim -) 200 mg PO DAILY [facility] Last Admin: 12/15/16 10:21 Dose: Not Given Aspirin (Ecotrin -) 81 mg PO DAILY [facility] Last Admin: 12/15/16 10:14 Dose: 81 mg Clopidogrel Bisulfate (Plavix -) 75 mg PO DAILY [facility] Last Admin: 12/15/16 10:14 Dose: 75 mg Docusate Sodium (Colace -) 300 mg PO HS [facility] Last Admin: 12/15/16 21:24 Dose: 300 mg Furosemide (Lasix -) 120 mg PO DAILY [facility] Last Admin: 12/15/16 10:14 Dose: 120 mg Heparin Sodium (Porcine) (Heparin -) 5,000 unit SQ BID [facility] Last Admin: 12/15/16 21:24 Dose: 5,000 unit Vancomycin HCl 1,000 mg/ (Dextrose) 250 mls @ 200 mls/hr IVPB Q12H [facility] Last Admin: 12/15/16 21:25 Dose: 200 mls/hr Insulin Aspart (Novolog Vial Sliding Scale -) 1 vial SQ ACHS [facility] PRN Reason: Protocol Oxycodone/Acetaminophen (Percocet 5/325 -) 1 combo PO Q4H PRN PRN Reason: PAIN LEVEL 6-10 Last Admin: 12/15/16 21:31 Dose: 1 combo Polyethylene Glycol (Miralax (For Daily Use) -) 17 gm PO BID [facility] Last Admin: 12/15/16 21:24 Dose: 17 gm Potassium Chloride (K-Dur -) 10 meq PO DAILY [facility] Last Admin: 12/15/16 10:14 Dose: 10 meq Rosuvastatin Calcium (Crestor -) 20 mg PO HS [facility] Last Admin: 12/15/16 21:24 Dose: 20 mg Tiotropium [place] (Spiriva -) 1 puff IH DAILY [facility] Last Admin: 12/15/16 10:16 Dose: 1 puff - Objective Vital Signs: Vital Signs Temperature 97.8 F 12/16/16 06:00 Pulse Rate 61 12/16/16 06:00 Respiratory Rate 19 12/16/16 06:00 Blood Pressure 137/66 12/16/16 06:00 O2 Sat by Pulse Oximetry (%) 94 L 12/16/16 08:28 Constitutional: Yes: No Distress Eyes: Yes: Conjunctiva Clear Cardiovascular: Yes: Regular Rate and Rhythm, Murmur, S1, S2 Respiratory: Yes: CTA Bilaterally Gastrointestinal: Yes: Normal Bowel Sounds, Soft. No: Tenderness Extremities: Yes: Other (decreased R LE swelling/ erythema/warmth + fluctuant area, distal lateral leg) Labs: INR, PTT INR 1.04 (0.82-1.09) 12/13/16 17:07 Assessment/Plan Cellulitis R LE Hematoma s/p injury, possibly infected Valvular heart disease, awaiting TAVR PCN allergy Cellulitis appears better Continue vancomycin, elevation IR evaluation for possible aspirate of hematoma Check vancomycin level
[2016-12-16] MEDS: INSULIN SLIDING SCALE (NOVOLOG) 1 VIAL SQ SCH ×2 (11:22→16:30)
[2016-12-16 12:03] LABS: ALBUMIN 3.3 g/dl (3.5-5.0); ALK PHOS 67 U/L (32-92); ANION GAP 6 (8-16); BILIRUBIN,TOTAL 1.3 mg/dl (0.2-1.0); CO2 28 mmol/L (22-28); CREATININE 0.9 mg/dl (0.6-1.3); GLUCOSE,RANDOM 206 mg/dl (74-106); MAGNESIUM 1.8 mg/dL (1.8-2.4); PHOSPHOROUS 2.6 mg/dl (2.5-4.6); SGOT/AST 42 U/L (10-42); SGPT/ALT 37 U/L (10-40); TOT PROT 6.1 g/dl (6.4-8.3)
[2016-12-16 12:24] LABS: BASOPHIL 0.5 % (0-2.0); EOSINOPHIL 3.2 % (0-4.5); MCH 28.7 pg (25.7-33.7); MCHC 33.7 g/dl (32.0-35.9); MEAN CELL VOLUME 85.2 fl (80-96); MEAN PLT VOLUME 9.5 fl (7.5-11.1); NEUTROPHILS 61.1 % (42.8-82.8); PLATELET COUNT 177 K/MM3 (134-434); RDW 13.3 % (11.9-15.9); WHITE BLOOD COUNT 6.5 K/mm3 (4.0-10.0)
[2016-12-16] MEDS ORDERED: LIDOCAINE HCL 1%, 10 MG/ML (50 mL VIAL) SQ ONE (12:53)
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
[2016-12-16] MEDS: VANCOMYCIN 1,000 MG in DEXTROSE 5%-WATER - 250 ML IVPB SCH ×2 (15:04→16:29)
--- NOTE | 2016-12-16 20:37 | EKG ---
Test Reason : Blood Pressure : / mmHG Vent. Rate : 055 BPM Atrial Rate : 055 BPM P-R Int : 306 ms QRS Dur : 092 ms QT Int : 434 ms P-R-T Axes : 075 -01 035 degrees QTc Int : 415 ms SINUS BRADYCARDIA WITH 1ST DEGREE A-V BLOCK CANNOT RULE OUT INFERIOR INFARCT , AGE UNDETERMINED NO PREVIOUS ECGS AVAILABLE Confirmed by MD ROD MARJORY ([id number]) on 12/16/2016 8:37:21 PM Referred By: MD SYKES Confirmed By:PERICO ROD MD
--- NOTE | 2016-12-17 14:50 | EKG ---
Test Reason : Blood Pressure : / mmHG Vent. Rate : 067 BPM Atrial Rate : 067 BPM P-R Int : 284 ms QRS Dur : 086 ms QT Int : 404 ms P-R-T Axes : 041 -13 033 degrees QTc Int : 426 ms SINUS RHYTHM WITH 1ST DEGREE A-V BLOCK INFERIOR INFARCT (CITED ON OR BEFORE 13-DEC-2016) ABNORMAL ECG WHEN COMPARED WITH ECG OF 13-DEC-2016 19:53, T WAVE VARIATION Confirmed by ANNE LUBIN MD ([id number]) on 12/17/2016 2:49:28 PM Referred By: MD ADAMS Confirmed By:ANNE LUBIN MD
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
== END 2016-12-16 19:30 | disposition home or self-care (01) | DRG 603 ==
LOC: FER 16:28 → FM/S 18:21
PROVIDERS: ADMIT Internal Medicine; ATTEND Nurse Practitioner Family
PROC: 0H9MXZX Drainage of Right Foot Skin, External Approach, Diagnostic (ICD-10-PCS; principal; 2016-12-16)
PROC: 02HV33Z Insertion of Infusion Device into Superior Vena Cava, Percutaneous Approach (ICD-10-PCS; 2016-12-16)
PROC: B548ZZA Ultrasonography of Superior Vena Cava, Guidance (ICD-10-PCS; 2016-12-16)
DX: L03.115 Cellulitis of right lower limb (principal); S90.31XA Contusion of right foot, initial encounter; X58.XXXA Exposure to other specified factors, initial encounter; Y92.512 Supermarket, store or market as the place of occurrence of the external cause; I25.10 Atherosclerotic heart disease of native coronary artery without angina pectoris; Z95.5 Presence of coronary angioplasty implant and graft; E78.5 Hyperlipidemia, unspecified; M10.9 Gout, unspecified; I35.0 Nonrheumatic aortic (valve) stenosis
CPT/HCPCS: 36415; 36569; 71010-TC; 77001-TC; 80048; 80053; 83036; 83735; 84100; 84550; 85025; 85610; 85730; 87040; 87070; 87205; 93005; 93010; 93971-TC; 94640; 97116-GP; 97161-GP; 99285-25; C1751; G0480; J1644

== ENCOUNTER 2016-12-17 08:56 | Day surgery (SDC) | payer OTHER, BC ==
[2016-12-17] MEDS ORDERED: VANCOMYCIN 1,250 MG in DEXTROSE 5%-WATER - 250 ML IVPB ONE (09:33)
--- NOTE | 2016-12-17 11:02 | PN ---
Progress Note (short form) - Note Progress Note: Presents for outpatient infusion Had aspiration of R LE hematoma yesterday- reports less pain Bloody fluid obtained, sent for culture No fever/ chills Cor S1S2 Lungs clear Abdomen soft, non tender decreased erythema/ warmth/ swelling R LE Cellulitis R LE S/P aspiration of R LE hematoma Major PCN allergy Vancomycin 1250mg IVPB x 1 today Vancomycin level am Elevation
[2016-12-17 12:09] VITALS: BP 129/79; PULSE 70; TEMP 98.2; BMI 33.4
== END 2016-12-17 12:49 | disposition home or self-care (01) ==
LOC: FINFUSION 08:56 → FM/S 08:57 → FINFUSION 12:49
PROVIDERS: ATTEND Internal Medicine
DX: L03.115 Cellulitis of right lower limb (principal)
CPT/HCPCS: 96365; 96366

== ENCOUNTER 2016-12-18 08:47 | Day surgery (SDC) | payer OTHER, BC ==
--- NOTE | 2016-12-18 09:20 | PN ---
Progress Note (short form) - Note Progress Note: Presents for IV Vancomycin infusion Less leg pain No fever/ chills Cor S1S2 Lungs clear Abdomen soft, non tender Less erythema/ warmth distal R LE less lateral leg swelling, but more swelling on dorsum of foot Cellulitis R LE S/P aspiration of hematoma - c/s pending PCN allergy Redose vancomycin 1250mg IVPB x 1 dose today Check vancomycin trough, BMP Instructed pt to keep R LE elevated as much as possible
[2016-12-18] MEDS ORDERED: VANCOMYCIN 1,250 MG in DEXTROSE 5%-WATER - 250 ML IVPB ONE (10:00)
[2016-12-18 10:02] LABS: CREATININE 1.1 mg/dl (0.6-1.3)
[2016-12-18 13:54] VITALS: BP 140/82; PULSE 87; TEMP 98; BMI 33.4
== END 2016-12-18 13:55 | disposition home or self-care (01) ==
LOC: FINFUSION 08:47 → FM/S 08:48 → FINFUSION 08:50 → FM/S 08:50 → FINFUSION 13:55
PROVIDERS: ATTEND Internal Medicine
DX: L03.115 Cellulitis of right lower limb (principal)
CPT/HCPCS: 36415; 80048; 96365; 96366; G0480

== ENCOUNTER 2016-12-19 08:53 | Day surgery (SDC) | payer OTHER, BC ==
[2016-12-19] MEDS ORDERED: VANCOMYCIN 1,250 MG in DEXTROSE 5%-WATER - 250 ML IVPB ONE (09:30)
[2016-12-19 10:21] VITALS: TEMP 97.8
[2016-12-19 11:41] VITALS: BP 117/78; PULSE 66
--- NOTE | 2016-12-19 11:48 | PN ---
Progress Note (short form) - Note Progress Note: Presents for vancomycin infusion Reports less leg pain No fever/ chills Cor S1S2 Lungs clear abdomen soft, non tender decreased R LE swelling and erythema Labs Vanco T 9.1 Cr 1.1 Aspirate c/s no growth Cellulitis R LE S/P aspiration, hematoma PCN allergy Continue vancomycin 1250mg IVPB q24h Elevation Discussed with son at bedside
== END 2016-12-19 12:10 | disposition home or self-care (01) ==
LOC: FINFUSION 08:53 → FM/S 08:57 → FINFUSION 12:10
PROVIDERS: ATTEND Internal Medicine
DX: L03.115 Cellulitis of right lower limb (principal)
CPT/HCPCS: 96365; 96366

== ENCOUNTER 2016-12-20 08:52 | Day surgery (SDC) | payer OTHER, BC ==
[2016-12-20] MEDS ORDERED: VANCOMYCIN 1,250 MG in DEXTROSE 5%-WATER - 250 ML IVPB ONE ×2 (09:20→09:30)
--- NOTE | 2016-12-20 09:57 | PN ---
Progress Note (short form) - Note Progress Note: Reports continued improvement LE Decreased pain; swelling and erythema nearly resolved No fever/ chills Tolerating antibiotic therapy without adverse rxn Cor S1S2 Lungs clear abdomen soft, obese non tender Decreased R LE swelling erythema and warmth nearly all resolved Resolving R LE cellulitis R LE hematoma s/p aspiration PCN allergy Valvular heart disease Continue vancomycin 1250mg IVPB q24h Elevation
[2016-12-20 11:01] VITALS: BP 121/76; PULSE 62; TEMP 97.7
== END 2016-12-20 11:22 | disposition home or self-care (01) ==
LOC: FINFUSION 08:52 → FM/S 08:54 → FINFUSION 11:22
PROVIDERS: ATTEND Internal Medicine
DX: L03.115 Cellulitis of right lower limb (principal)
CPT/HCPCS: 96365; 96366

== ENCOUNTER 2016-12-21 08:12 | Day surgery (SDC) | payer OTHER, BC ==
[2016-12-21] MEDS ORDERED: VANCOMYCIN 1,250 MG in DEXTROSE 5%-WATER - 250 ML IVPB SCH (08:45)
[2016-12-21] MEDS ORDERED: VANCOMYCIN 1,250 MG in DEXTROSE 5%-WATER - 250 ML IVPB ONE (08:47)
--- NOTE | 2016-12-21 09:22 | PN ---
Progress Note (short form) - Note Progress Note: ID Reports pain in R LE at night No fever/ chills Tolerating antibiotics Cor S1S2 Lungs clear abdomen soft, non tender R LE erythema nearly all resolved 1+ residual edema Cellulitis R LE- nearly all resolved R LE hematoma secondary to trauma PCN allergy Valvular heart disease Vancomycin 1250mg IVPB x 1 dose today Start clindamycin 300mg po tid x 3d Elevation
[2016-12-21 09:49] VITALS: TEMP 97.7
[2016-12-21 10:52] VITALS: BP 134/76; PULSE 72
== END 2016-12-21 10:48 | disposition home or self-care (01) ==
LOC: FINFUSION 08:12 → FM/S 08:13 → FINFUSION 10:48
PROVIDERS: ATTEND Internal Medicine
DX: L03.115 Cellulitis of right lower limb (principal)
CPT/HCPCS: 96365; 96366

== ENCOUNTER 2016-12-23 08:54 | Day surgery (SDC) | payer OTHER, BC ==
--- NOTE | 2016-12-23 09:03 | PN ---
Progress Note (short form) - Note Progress Note: ID Doing well Some pain at night R lateral leg No fever/ chills Cor S1S2 Lungs clear PICC site no erythema/ tenderness erythema R LE nearly 100% resolved still with fluctuant swelling lateral R leg Cellulitis R LE Hematoma PCN allergy Last dose Vancomycin today, remove PICC Clindamycin 300mg po tid x 3-5d
[2016-12-23] MEDS ORDERED: VANCOMYCIN 1,250 MG in DEXTROSE 5%-WATER - 250 ML IVPB ONE (09:30)
[2016-12-23 11:57] VITALS: BP 129/77; PULSE 68; TEMP 98; BMI 33.4
== END 2016-12-23 12:04 | disposition home or self-care (01) ==
LOC: FINFUSION 08:54 → FM/S 08:56 → FINFUSION 12:04
PROVIDERS: ATTEND Internal Medicine
DX: L03.115 Cellulitis of right lower limb (principal)
CPT/HCPCS: 96365; 96366

== ENCOUNTER 2018-03-27 16:10 | Observation (INO) | payer OTHER, BC ==
--- NOTE | 2018-03-27 16:34 | PDOC ---
History of Present Illness - General History Source: Patient Exam Limitations: No Limitations - History of Present Illness Initial Comments: 03/27/18 16:57 The patient is a 88 year old male with a significant PMH of CAD, HTN, aortic stenosis sp TAVR, gout, and emphysema who presents to the emergency department with generalized malaise for the past two days. The patient was seen by his PCP two days ago who prescribed him prednisone and azithromycin for his cough productive of phelgm. The patient endorses mild shortness of breath when ambulating at his baseline. The patient's is at bedside and states the patient has been more sleepy than usual. The patient denies any changes in appetite or bowel movements but reports increased thirst and urinary frequency without dysuria. The patient denies neck pain, back pain, abdominal pain, chest pain, headache and dizziness. Denies fever, chills, nausea, vomit, diarrhea and constipation. Denies dysuria,, urgency and hematuria. Allergies: NKA Past surgical history: aortic valve repair Social history: No reported alcohol, drug, or cigarette use. PCP:Dr. Maier <Alfreda Yap - Last Filed: 03/27/18 16:57> <Tesfaye Fuentes - Last Filed: 03/27/18 18:35> - General Chief Complaint: Lethargy Stated Complaint: LETHARGIC Time Seen by Provider: 03/27/18 16:17 Past History <Alfreda Yap - Last Filed: 03/27/18 16:57> - Past Medical History Cardiac Disorders: Yes (CAD) CVA: (TIA) COPD: Yes (EMPHYSEMA) DVT: Yes HTN: Yes Hypercholesterolemia: Yes - Surgical History Abdominal Surgery: Yes (HERNIA REPAIR) - Immunization History Td Vaccination: Yes - Suicide/Smoking/Psychosocial Hx Smoking Status: No Smoking History: Former smoker Have you smoked in the past 12 months: No Number of Cigarettes Smoked Daily: 0 If you are a former smoker, when did you quit?: 25 YEARS Hx Alcohol Use: Yes (occasional) Drug/Substance Use Hx: No Substance Use Type: None Hx Substance Use Treatment: No <Tesfaye Fuentes - Last Filed: 03/27/18 18:35> - Past Medical History Allergies/Adverse Reactions: Allergies Allergy/AdvReac Type Severity Reaction Status Date / Time Penicillins Allergy Severe anaphylaxis Verified 03/27/18 16:16 amoxicillin trihydrate Allergy Verified 03/27/18 16:16 [From Augmentin] potassium clavulanate Allergy Verified 03/27/18 16:16 [From Augmentin] dipyridamole [From Aggrenox] AdvReac unable to Verified 03/27/18 16:16 tolerate bactrim ds Allergy Intermediate Rash Uncoded 03/27/18 16:16 Home Medications: Ambulatory Orders Budesonide/Formeterol Fumarate [SYMBICORT 160/4.5mcg -] 1 inh PO QID PRN Furosemide 80 mg PO BID tablet 11/11/16 Rosuvastatin Calcium [Crestor] 10 mg PO DAILY tablet 11/11/16 Allopurinol [Zyloprim -] 100 mg PO DAILY 12/02/16 Potassium Chloride [K-Dur -] 10 meq PO DAILY 12/02/16 Acetaminophen [Tylenol .Regular Strength -] 650 mg PO Q6H PRN #0 tablet Aspirin [Aspirin Ec] 81 mg PO QOD 03/25/17 Albuterol 0.083% Nebulizer Zoe [Ventolin 0.083%] 1 neb NEB QID 03/27/18 Azithromycin 500 mg PO DAILY 03/27/18 Cholecalciferol (Vitamin D3) [Vitamin D] 2,000 unit PO DAILY 03/27/18 Nystatin 100,000 unit PO QID 03/27/18 Prednisone [Deltasone] 40 mg PO BID 03/27/18 Ranitidine [Zantac -] 150 mg PO BID 03/27/18 Tiotropium [place] [Spiriva] 1 inh IH DAILY 03/27/18 Review of Systems - Review of Systems Able to Perform ROS?: Yes Comments:: 03/27/18 16:58 "CONSTITUTIONAL: No reported: Fever, Chills, Diaphoresis, Loss of Appetite Reported:Generalized malaise. HEENT: No reported: Rhinorrhea, Nasal Congestion, Throat Pain, Throat Swelling, Difficulty Swallowing, Mouth Swelling, Ear Pain, Eye Pain, Visual Changes CARDIOVASCULAR: No reported: Chest Pain, Syncope, Palpitations, Irregular Heart Rate, Lightheadedness, Peripheral Edema RESPIRATORY: +Cough, No reported: Shortness of Breath, SOB with Exertion, Orthopnea, Wheezing, Stridor, Hemoptysis GASTROINTESTINAL: No reported: Abdominal pain, Abdominal Distension, Nausea, Vomiting, Diarrhea, Constipation, Melena, Hematochezia GENITOURINARY: + Frequency, No reported: Dysuria, Urgency, Hesitancy, Flank Pain, Genital Pain MUSCULOSKELETAL: No reported: Myalgia, Arthralgia, Joint Swelling, Back pain, Neck Pain SKIN: No reported: Rash, Itching, Pallor HEMEATOLOGIC/IMMUNOLOGIC: No reported: Easy Bleeding, Easy Bruising, Lymphadenopathy, Frequent infections ENDOCRINE: No reported: Unexplained Weight Gain, Unexplained Weight Loss, Heat Intolerance , Cold Intolerance NEUROLOGIC: No reported: Headache, Focal Weakness, Paresthesias, Vertigo, Lightheadedness, Unsteady Gait, Seizure, Mental Status Changes, Incontinence PSYCHIATRIC: No reported: Anxiety, Depression" <Alfreda Yap - Last Filed: 03/27/18 16:57> *Physical Exam - Vital Signs Last Vital Signs Temp Pulse Resp BP Pulse Ox 97.6 F 78 20 146/96 94 L 03/27/18 16:13 03/27/18 16:13 03/27/18 16:13 03/27/18 16:13 03/27/18 16:13 - Physical Exam Comments: 03/27/18 16:58 "GENERAL: The patient is awake, alert, and fully oriented, Nontoxic - in no acute distress. HEAD: Normocephalic, atraumatic. EYES: extraocular movements intact, sclera anicteric, conjunctiva clear. ENT: Normal voice, Moist mucous membranes. NECK: Normal range of motion, supple, no JVD LUNGS: (+) Mild rales in the left base. (+) Moderately tachypneic. No wheezes. HEART: Regular rate and rhythm, without murmur, rub or gallop. ABDOMEN: Soft, nontender, No guarding, no rebound.No CVA tenderness EXTREMITIES: Normal range of motion, no edema. No cyanosis. No erythema, or tenderness. NEUROLOGICAL: No facial assymetry, Normal speech, PSYCH: Normal mood, normal affect. SKIN: Warm, Dry, normal turgor," <Alfreda Yap - Last Filed: 03/27/18 16:57> Heart Score/ECG Review - ECG Impressions Comment:: 03/27/18 17:00 Twelve-lead EKG was performed and reviewed by me. There is normal sinus rhythm with a normal rate. Rate of 72 PVCs present q waves in inferior leads <GinaBenTesfaye - Last Filed: 03/27/18 18:35> ED Treatment Course - LABORATORY CBC & Chemistry Diagram: 03/27/18 17:15 03/27/18 17:15 <GinaTesfaye meyers - Last Filed: 03/27/18 18:35> Medical Decision Making - Medical Decision Making 03/27/18 16:46 88y M hx of CAD, TIA, COPD, DVT, HTN, HL, AO stenosis s/p TAVR presents with malaise/fatigue for the past 2 days - pt states he hgas been having a cough, w/ o associated fever/chills, cp. Endorses mild EVANS that might be slightly worse than usual. Pt recently was on prednisone and completed a course of azithromycin from Dr. Black. Pt denies any associated cp, abd pain, back pain , headache, focal neurological complaints. Pt also notes frequency without any dysuria. pt exam noted for rales at the L base ddx: pna, hyperglycemia/dm, metagolic derangement, uti will ck labs including cbc, cmp, ua, trops, ekg, cxr will reassess A portion of this note was documented by scribe services under my direction. I have reviewed the details of the note, within reason, and agree with the documentation with the following case summary and management plan written by me 03/27/18 18:19 pts lab work reviewed - noted for leukocytosis, eelvated bgm - ?prednisone side effect? 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 black agree with admission for further management stable for med surg Case discussed in detail with admitting physician including history, physical exam and ancillary studies. Admitting physician has assumed care for the patient, will follow all pending diagnostics and will complete the evaluation and treatment. <Tesfaye Fuentes - Last Filed: 03/27/18 18:35> *DC/Admit/Observation/Transfer - Attestations Scribe Attestion: 03/27/18 16:58 Documentation prepared by Alfreda Yap, acting as center medical and lab director for Tesfaye Fuentes MD. <Alfreda Yap - Last Filed: 03/27/18 16:57> - Discharge Dispostion Decision to Admit order: Yes <Tesfaye Fuentes - Last Filed: 03/27/18 18:35> Diagnosis at time of Disposition: Hyperglycemia, drug-induced, Acute prerenal azotemia Pneumonia Qualifiers: Pneumonia type: due to unspecified organism Laterality: right Lung location: lower lobe of lung Qualified Code(s): J18.1 - Lobar pneumonia, unspecified organism - Discharge Dispostion Condition at time of disposition: Guarded - Referrals Referrals: Ambreen Maier MD [Primary Care Provider] - - Patient Instructions - Post Discharge Activity
[2018-03-27 17:38] LABS: URINE APPEARANCE Clear; URINE BILIRUBIN Negative (NEGATIVE); URINE GLUCOSE (UA) 3+ (NEGATIVE); URINE KETONE Negative (NEGATIVE); URINE LEUK ESTERASE Negative (NEGATIVE); URINE NITRITE Negative (NEGATIVE); URINE PROTEIN Negative (NEGATIVE); URINE UROBILINOGEN 0.2 (0.2-1.0)
[2018-03-27 17:39] LABS: URINE COLOR YELLOW
[2018-03-27 17:42] LABS: BASO % 2.2 % (0-2.0); HEMATOCRIT 51.8 % (35.4-49); LYMPH % 8.4 % (8-40); MCH 30.1 pg (25.7-33.7); MCHC 34.8 g/dl (32.0-35.9); MEAN CELL VOLUME 86.5 fl (80-96); MEAN PLT VOLUME 10.3 fl (7.5-11.1); NEUT % 86.4 % (42.8-82.8); PLATELET COUNT 234 K/MM3 (134-434); RBC 5.99 M/mm3 (4.00-5.60); RDW 12.9 % (11.9-15.9); WHITE BLOOD COUNT 18.3 K/mm3 (4.0-10.8)
[2018-03-27 17:55] LABS: ALBUMIN 4.3 g/dl (3.5-5.0); ALK PHOS 129 U/L (32-92); ANION GAP 15 (8-16); BILIRUBIN,TOTAL 2.8 mg/dl (0.2-1.0); BLOOD UREA NITROGEN 54 mg/dl (7-18); CALCIUM 10.8 mg/dl (8.4-10.2); CHLORIDE 82 mmol/L (98-107); CO2 28 mmol/L (22-28); CREATININE 1.4 mg/dl (0.6-1.3); SGOT/AST 26 U/L (10-42); SGPT/ALT 50 U/L (10-40); SODIUM 125 mmol/L (136-145)
[2018-03-27 17:56] LABS: EPI CELLS 0-3 /HPF; URINE WBC 0-3 (0-2)
[2018-03-27 18:01] LABS: ACTIVATED PTT 21.6 SECONDS (25.2-36.5)
[2018-03-27] MEDS ORDERED: SODIUM CHLORIDE 500 ML IV STA (18:04)
[2018-03-27 18:06] LABS: INR 0.96 (0.82-1.09); PROTHROMBIN TIME (PATIENT) 10.8 SEC (10.2-13.0)
[2018-03-27 18:08] LABS: GLUCOSE,RANDOM 682 mg/dl (74-106)
[2018-03-27 18:37] LABS: VENOUS PC02 44.8 mmHg (38-52); VENOUS PH 7.43 (7.32-7.42); VENOUS PO2 46.1 mmHg (28-48)
[2018-03-27] MEDS ORDERED: SODIUM CHLORIDE 0.9% 500 ML INFUS.BAG IV ONE (19:00)
[2018-03-27 20:29] LABS: ANION GAP 11 (8-16); BLOOD UREA NITROGEN 50 mg/dl (7-18); CALCIUM 9.3 mg/dl (8.4-10.2); CHLORIDE 88 mmol/L (98-107); CO2 27 mmol/L (22-28); CREATININE 1.4 mg/dl (0.6-1.3); POTASSIUM 4.4 mmol/L (3.5-5.1); SODIUM 126 mmol/L (136-145)
[2018-03-27 20:32] LABS: GLUCOSE,RANDOM 573 mg/dl (74-106)
[2018-03-27] MEDS ORDERED: SODIUM CHLORIDE 1,000 ML IV SCH (21:00)
--- NOTE | 2018-03-27 21:07 | HP ---
Admitting History and Physical - Admission Chief Complaint: confusion - Smoking History Smoking history: Former smoker Have you smoked in the past 12 months: No Aproximately how many cigarettes per day: 0 If you are a former smoker, when did you quit?: 25 YEARS - Alcohol/Substance Use Hx Alcohol Use: Yes (occasional) Home Medications - Allergies Allergies/Adverse Reactions: Allergies Allergy/AdvReac Type Severity Reaction Status Date / Time Penicillins Allergy Severe anaphylaxis Verified 03/27/18 16:16 amoxicillin trihydrate Allergy Verified 03/27/18 16:16 [From Augmentin] potassium clavulanate Allergy Verified 03/27/18 16:16 [From Augmentin] dipyridamole [From Aggrenox] AdvReac unable to Verified 03/27/18 16:16 tolerate bactrim ds Allergy Intermediate Rash Uncoded 03/27/18 16:16 - Home Medications Home Medications: Ambulatory Orders Budesonide/Formeterol Fumarate [SYMBICORT 160/4.5mcg -] 1 inh PO QID PRN Furosemide 80 mg PO BID tablet 11/11/16 Rosuvastatin Calcium [Crestor] 10 mg PO DAILY tablet 11/11/16 Allopurinol [Zyloprim -] 100 mg PO DAILY 12/02/16 Potassium Chloride [K-Dur -] 10 meq PO DAILY 12/02/16 Acetaminophen [Tylenol .Regular Strength -] 650 mg PO Q6H PRN #0 tablet Aspirin [Aspirin Ec] 81 mg PO QOD 03/25/17 Albuterol 0.083% Nebulizer Zoe [Ventolin 0.083%] 1 neb NEB QID 03/27/18 Azithromycin 500 mg PO DAILY 03/27/18 Cholecalciferol (Vitamin D3) [Vitamin D] 2,000 unit PO DAILY 03/27/18 Nystatin 100,000 unit PO QID 03/27/18 Prednisone [Deltasone] 40 mg PO BID 03/27/18 Ranitidine [Zantac -] 150 mg PO BID 03/27/18 Tiotropium [place] [Spiriva] 1 inh IH DAILY 03/27/18 Physical Examination Vital Signs: Vital Signs Temperature 98.0 F 03/27/18 17:00 Pulse Rate 67 03/27/18 19:52 Respiratory Rate 24 03/27/18 19:23 Blood Pressure 140/90 03/27/18 19:23 O2 Sat by Pulse Oximetry (%) 98 03/27/18 19:52 Labs: CBC, BMP 03/27/18 17:15 03/27/18 20:05 Problem List - Problems (1) Hyperglycemia, drug-induced Assessment/Plan: iv NS continue accuchecks and add insulin coverage Code(s): R73.9 - HYPERGLYCEMIA, UNSPECIFIED; T50.905A - ADVERSE EFFECT OF UNSP DRUG/MEDS/BIOL SUBST, INIT (2) COPD (chronic obstructive pulmonary disease) Code(s): J44.9 - CHRONIC OBSTRUCTIVE PULMONARY DISEASE, UNSPECIFIED (3) CHF (congestive heart failure) Code(s): I50.9 - HEART FAILURE, UNSPECIFIED (4) CHF (congestive heart failure), NYHA class I Code(s): I50.9 - HEART FAILURE, UNSPECIFIED (5) CHF (congestive heart failure), NYHA class III Code(s): I50.9 - HEART FAILURE, UNSPECIFIED (6) CHF (congestive heart failure), NYHA class II Code(s): I50.9 - HEART FAILURE, UNSPECIFIED
[2018-03-27 21:08] VITALS: BMI 29.2
[2018-03-27] MEDS ORDERED: INSULIN (NOVOLOG) ASPART 100 UNITS/ML 10ML VIAL ONE (21:11)
[2018-03-27] MEDS: ROSUVASTATIN CA 10 MG TABLET (FP) PO SCH (21:12)
[2018-03-27] MEDS: RANITIDINE HCL 150 MG TABLET (FP) PO SCH (21:12)
[2018-03-27] MEDS: INSULIN SLIDING SCALE (NOVOLOG) 1 VIAL SQ SCH (21:12)
[2018-03-27] MEDS ORDERED: INSULIN (NOVOLOG) ASPART 100 UNITS/ML 10ML VIAL SQ ONE (22:45)
[2018-03-28] MEDS: INSULIN SLIDING SCALE (NOVOLOG) 1 VIAL SQ SCH ×4 (01:00→22:05)
[2018-03-28] MEDS: ALBUTEROL SO4 2.5/IPRATROPIUM 0.5 INH SOL 3 ML VIAL.NEB. NEB PRN ×2 (06:31→22:06)
[2018-03-28 08:45] LABS: BASO % 0.2 % (0-2.0); EOS % 0.6 % (0-4.5); HEMATOCRIT 47.4 % (35.4-49); MCH 29.3 pg (25.7-33.7); MCHC 33.8 g/dl (32.0-35.9); MEAN CELL VOLUME 86.6 fl (80-96); MEAN PLT VOLUME 9.2 fl (7.5-11.1); MONO % 4.4 % (3.8-10.2); NEUT % 74.8 % (42.8-82.8); PLATELET COUNT 200 K/MM3 (134-434); RBC 5.47 M/mm3 (4.00-5.60); WHITE BLOOD COUNT 17.3 K/mm3 (4.0-10.8)
[2018-03-28 08:58] LABS: ALBUMIN 3.4 g/dl (3.5-5.0); ALK PHOS 69 U/L (32-92); ANION GAP 7 (8-16); BILIRUBIN,TOTAL 2.8 mg/dl (0.2-1.0); BLOOD UREA NITROGEN 41 mg/dl (7-18); CALCIUM 9.5 mg/dl (8.4-10.2); CHLORIDE 95 mmol/L (98-107); CO2 32 mmol/L (22-28); CREATININE 1.2 mg/dl (0.6-1.3); GLUCOSE,RANDOM 189 mg/dl (74-106); POTASSIUM 3.8 mmol/L (3.5-5.1); SGOT/AST 20 U/L (10-42); SGPT/ALT 39 U/L (10-40); SODIUM 134 mmol/L (136-145); TOT PROT 6.4 g/dl (6.4-8.3)
--- NOTE | 2018-03-28 09:41 | EKG ---
Test Reason : Blood Pressure : / mmHG Vent. Rate : 072 BPM Atrial Rate : 072 BPM P-R Int : 206 ms QRS Dur : 082 ms QT Int : 370 ms P-R-T Axes : 018 -26 003 degrees QTc Int : 405 ms SINUS RHYTHM WITH OCCASIONAL PREMATURE VENTRICULAR COMPLEXES MINIMAL VOLTAGE CRITERIA FOR LVH, MAY BE NORMAL VARIANT INFERIOR INFARCT (CITED ON OR BEFORE 13-DEC-2016) CANNOT RULE OUT ANTERIOR INFARCT , AGE UNDETERMINED ABNORMAL ECG WHEN COMPARED WITH ECG OF 15-DEC-2016 17:07, PREMATURE VENTRICULAR COMPLEXES ARE NOW PRESENT [place] INTERVAL HAS DECREASED NONSPECIFIC T WAVE ABNORMALITY NO LONGER EVIDENT IN LATERAL LEADS Confirmed by LAVINIA ROJO MD ([id number]) on 03/28/2018 9:41:08 AM Referred By: MD WALKER Confirmed By:LAVINIA ROJO MD
[2018-03-28] MEDS: ALLOPURINOL 100 MG TABLET (FP) PO SCH (10:14)
[2018-03-28] MEDS: RANITIDINE HCL 150 MG TABLET (FP) PO SCH ×2 (10:14→22:04)
[2018-03-28] MEDS ORDERED: metFORMIN HCL 500 MG TABLET (FP) PO ONE (12:58)
[2018-03-28] MEDS ORDERED: INSULIN SLIDING SCALE (NOVOLOG) 1 VIAL SQ STA ×2 (13:12→13:16)
--- NOTE | 2018-03-28 13:19 | PN ---
Progress Note, Physician Chief Complaint: hyperglicemia associated with confusion History of Present Illness: 88 yo male admitted for complaints of confusion and weakness - Current Medication List Current Medications: Active Medications Albuterol/Ipratropium (Duoneb -) 1 amp NEB Q6H PRN PRN Reason: SHORTNESS OF BREATH Last Admin: 03/28/18 06:31 Dose: 1 amp Allopurinol (Zyloprim -) 100 mg PO DAILY [facility] Last Admin: 03/28/18 10:14 Dose: 100 mg Insulin Aspart (Novolog Vial Sliding Scale -) vial SQ ACHS [facility]; Protocol Insulin Aspart (Novolog Vial Sliding Scale -) vial SQ UTDICT [facility]; Protocol Stop: 03/28/18 13:13 Metformin HCl (Glucophage -) 500 mg PO DAILY@0700 [facility] Metformin HCl (Glucophage -) 500 mg PO ONCE ONE Stop: 03/28/18 12:59 Ranitidine HCl (Zantac -) 150 mg PO BID [facility] Last Admin: 03/28/18 10:14 Dose: 150 mg Rosuvastatin Calcium (Crestor -) 10 mg PO HS [facility] Last Admin: 03/27/18 21:12 Dose: 10 mg - Objective Vital Signs: Vital Signs Temperature 98.1 F 03/28/18 09:16 Pulse Rate 72 03/28/18 09:16 Respiratory Rate 16 03/28/18 09:16 Blood Pressure 139/79 03/28/18 09:16 O2 Sat by Pulse Oximetry (%) 98 03/28/18 09:17 Constitutional: Yes: No Distress, Calm Eyes: Yes: Conjunctiva Clear, EOM Intact HENT: Yes: Atraumatic, Normocephalic Neck: Yes: Supple, Trachea Midline Cardiovascular: Yes: Regular Rate and Rhythm, S1, S2 Respiratory: Yes: Regular, CTA Bilaterally Gastrointestinal: Yes: Normal Bowel Sounds, Soft, Abdomen, Obese. No: Melena, Splenomegaly ...Rectal Exam: Yes: Deferred Edema: No Peripheral Pulses WNL: No Neurological: Yes: Alert, Oriented Psychiatric: Yes: Alert, Oriented Labs: CBC, BMP 03/28/18 08:10 03/28/18 08:10 INR, PTT INR 0.96 (0.82-1.09) L 03/27/18 17:15 Problem List - Problems (1) Hyperglycemia, drug-induced Code(s): R73.9 - HYPERGLYCEMIA, UNSPECIFIED; T50.905A - ADVERSE EFFECT OF UNSP DRUG/MEDS/BIOL SUBST, INIT (2) COPD (chronic obstructive pulmonary disease) Code(s): J44.9 - CHRONIC OBSTRUCTIVE PULMONARY DISEASE, UNSPECIFIED (3) CHF (congestive heart failure) Code(s): I50.9 - HEART FAILURE, UNSPECIFIED (4) CHF (congestive heart failure), NYHA class I Code(s): I50.9 - HEART FAILURE, UNSPECIFIED (5) CHF (congestive heart failure), NYHA class III Code(s): I50.9 - HEART FAILURE, UNSPECIFIED (6) CHF (congestive heart failure), NYHA class II Code(s): I50.9 - HEART FAILURE, UNSPECIFIED (7) Leukocytosis (leucocytosis) Code(s): D72.829 - ELEVATED WHITE BLOOD CELL COUNT, UNSPECIFIED (8) Hyponatremia Code(s): E87.1 - HYPO-OSMOLALITY AND HYPONATREMIA
[2018-03-28] MEDS: FUROSEMIDE 40 MG TABLET (FP) PO SCH (13:39)
[2018-03-28] MEDS ORDERED: INSULIN SLIDING SCALE (NOVOLOG) 1 VIAL SQ SCH ×2 (13:45→16:30)
[2018-03-28] MEDS ORDERED: FUROSEMIDE 40 MG TABLET (FP) PO SCH (14:00)
[2018-03-28] MEDS: ROSUVASTATIN CA 10 MG TABLET (FP) PO SCH (22:04)
[2018-03-29] MEDS: INSULIN SLIDING SCALE (NOVOLOG) 1 VIAL SQ SCH ×2 (06:56→11:10)
[2018-03-29] MEDS: FUROSEMIDE 40 MG TABLET (FP) PO SCH (06:56)
[2018-03-29] MEDS ORDERED: metFORMIN HCL 500 MG TABLET (FP) PO SCH (07:00)
[2018-03-29 08:49] LABS: HEMOGLOBIN 16.7 GM/dl (11.7-16.9); MCH 29.3 pg (25.7-33.7); MCHC 34.1 g/dl (32.0-35.9); MEAN PLT VOLUME 9.9 fl (7.5-11.1); PLATELET COUNT 191 K/MM3 (134-434); RDW 13.2 % (11.9-15.9); WHITE BLOOD COUNT 17.4 K/mm3 (4.0-10.8)
[2018-03-29 09:12] LABS: ALBUMIN 3.4 g/dl (3.5-5.0); ALK PHOS 71 U/L (32-92); ANION GAP 11 (8-16); BILIRUBIN,TOTAL 3.5 mg/dl (0.2-1.0); BLOOD UREA NITROGEN 30 mg/dl (7-18); CALCIUM 9.6 mg/dl (8.4-10.2); CHLORIDE 92 mmol/L (98-107); CO2 29 mmol/L (22-28); CREATININE 1.1 mg/dl (0.6-1.3); GLUCOSE,RANDOM 257 mg/dl (74-106); POTASSIUM 3.8 mmol/L (3.5-5.1); SGOT/AST 36 U/L (10-42); SGPT/ALT 49 U/L (10-40); SODIUM 132 mmol/L (136-145); TOT PROT 6.6 g/dl (6.4-8.3)
[2018-03-29] MEDS: RANITIDINE HCL 150 MG TABLET (FP) PO SCH (09:46)
[2018-03-29] MEDS: ALLOPURINOL 100 MG TABLET (FP) PO SCH (09:46)
[2018-03-29 11:53] LABS: MACROCYTOSIS 1+; OVALOCYTE 1+; PLATELET ESTIMATE ADEQUATE; TEAR DROP CELLS 1+
[2018-03-29] MEDS ORDERED: INSULIN (NOVOLOG) ASPART 100 UNITS/ML 10ML VIAL ONE (12:30)
[2018-03-29 14:09] VITALS: BP 111/65; PULSE 72; TEMP 98.1
--- NOTE | 2018-03-29 16:55 | PN ---
Progress Note, Physician Chief Complaint: hyperglicemia associated with confusion History of Present Illness: 88 yo male admitted for complaints of confusion and weakness was found to have hyperglicemia, and leukocytosis. The patient was treated recently for acute bronchitis with high doses of Prednisone and antibiotics. He was hydrated with NS and responded well. His Hb A1 C was elevated in the past at 7 but he was not given any hypoglicemiant medications. He was started during the current hospital stay on Glucophage 500 mg daily and tolerated it well.. - Current Medication List Current Medications: Active Medications Albuterol/Ipratropium (Duoneb -) 1 amp NEB Q6H PRN PRN Reason: SHORTNESS OF BREATH Last Admin: 03/28/18 22:06 Dose: 1 amp Allopurinol (Zyloprim -) 100 mg PO DAILY [facility] Last Admin: 03/29/18 09:46 Dose: 100 mg Furosemide (Lasix -) 80 mg PO BID@0600,1400 [facility] Last Admin: 03/29/18 06:56 Dose: 80 mg Insulin Aspart (Novolog Vial Sliding Scale -) 1 vial SQ ACHS [facility]; Protocol Last Admin: 03/29/18 11:10 Dose: 4 units Insulin Aspart (Novolog Vial Sliding Scale -) 6 vial SQ ONCE [facility] Last Admin: 03/28/18 13:05 Dose: 6 units Metformin HCl (Glucophage -) 500 mg PO DAILY@0700 [facility] Last Admin: 03/29/18 06:56 Dose: 500 mg Ranitidine HCl (Zantac -) 150 mg PO BID [facility] Last Admin: 03/29/18 09:46 Dose: 150 mg Rosuvastatin Calcium (Crestor -) 10 mg PO HS [facility] Last Admin: 03/28/18 22:04 Dose: 10 mg - Objective Vital Signs: Vital Signs Temperature 98.1 F 03/29/18 14:07 Pulse Rate 72 03/29/18 14:07 Respiratory Rate 18 03/29/18 14:07 Blood Pressure 111/65 03/29/18 14:07 O2 Sat by Pulse Oximetry (%) 96 03/29/18 14:07 Constitutional: Yes: No Distress, Calm Eyes: Yes: Conjunctiva Clear, EOM Intact HENT: Yes: Atraumatic, Normocephalic Neck: Yes: Supple, Trachea Midline Cardiovascular: Yes: Regular Rate and Rhythm, S1, S2 Respiratory: Yes: Regular, CTA Bilaterally Gastrointestinal: Yes: Normal Bowel Sounds, Soft, Abdomen, Obese, Other (rectus abdominis disyasis). No: Hepatomegaly, Splenomegaly Extremities: No: Calf Tenderness Edema: No Peripheral Pulses WNL: Yes Neurological: Yes: Alert, Oriented Psychiatric: Yes: Alert, Oriented Labs: CBC, BMP 03/29/18 06:00 03/29/18 06:00 INR, PTT INR 0.96 (0.82-1.09) L 03/27/18 17:15 Problem List - Problems (1) Hyperglycemia, drug-induced Assessment/Plan: iv NS was discontinued start Metformin 500 mg daily since HBa1C 7 Code(s): R73.9 - HYPERGLYCEMIA, UNSPECIFIED; T50.905A - ADVERSE EFFECT OF UNSP DRUG/MEDS/BIOL SUBST, INIT (2) CHF (congestive heart failure) Code(s): I50.9 - HEART FAILURE, UNSPECIFIED (3) CHF (congestive heart failure), NYHA class I Code(s): I50.9 - HEART FAILURE, UNSPECIFIED (4) CHF (congestive heart failure), NYHA class III Code(s): I50.9 - HEART FAILURE, UNSPECIFIED (5) CHF (congestive heart failure), NYHA class II Assessment/Plan: restarted Lasix 80 mg po bid continue K 10 [place] po daily Code(s): I50.9 - HEART FAILURE, UNSPECIFIED (6) Leukocytosis (leucocytosis) Assessment/Plan: down trending continue monitoring WBC as outpatient Code(s): D72.829 - ELEVATED WHITE BLOOD CELL COUNT, UNSPECIFIED (7) Hyponatremia Assessment/Plan: corrected with NS administration Code(s): E87.1 - HYPO-OSMOLALITY AND HYPONATREMIA (8) Acute bronchitis Assessment/Plan: resolving completed antibiotics of steroids continue monitoring WBC post steroids Code(s): J20.9 - ACUTE BRONCHITIS, UNSPECIFIED (9) Diabetes mellitus Assessment/Plan: started Glucophage 500 mg po daily follow up in office and repeat HBA1 C Code(s): E11.9 - TYPE 2 DIABETES MELLITUS WITHOUT COMPLICATIONS Assessment/Plan 88 yo male admitted for hyperglicemia and leucocytosis, improved clinically to IV hydration and Metformin. He feel beetr there is no confusion and his weakness resolved. He is ready to be discharged on Metformin daily and he will follow up as an outpatient within 4-5 days with me. Diet instructions sent via the patient postal established with my practice.
== END 2018-03-29 16:50 | disposition home or self-care (01) ==
LOC: FER 16:10 → FM/S 18:34
PROVIDERS: ADMIT Internal Medicine; ATTEND Internal Medicine
PROC: 3E03329 Introduction of Other Anti-infective into Peripheral Vein, Percutaneous Approach (ICD-10-PCS; principal; 2018-03-27)
PROC: 3E0337Z Introduction of Electrolytic and Water Balance Substance into Peripheral Vein, Percutaneous Approach (ICD-10-PCS; 2018-03-27)
PROC: 3E0F7GC Introduction of Other Therapeutic Substance into Respiratory Tract, Via Natural or Artificial Opening (ICD-10-PCS; 2018-03-27)
DX: E09.65 Drug or chemical induced diabetes mellitus with hyperglycemia (principal); T50.905A Adverse effect of unspecified drugs, medicaments and biological substances, initial encounter; R79.89 Other specified abnormal findings of blood chemistry; J18.1 Lobar pneumonia, unspecified organism; J43.9 Emphysema, unspecified; I10 Essential (primary) hypertension; I50.9 Heart failure, unspecified; I25.10 Atherosclerotic heart disease of native coronary artery without angina pectoris; M10.9 Gout, unspecified; E78.5 Hyperlipidemia, unspecified; D72.829 Elevated white blood cell count, unspecified; E87.1 Hypo-osmolality and hyponatremia; Z86.718 Personal history of other venous thrombosis and embolism; Z86.73 Personal history of transient ischemic attack (TIA), and cerebral infarction without residual deficits; Z88.0 Allergy status to penicillin; Z88.1 Allergy status to other antibiotic agents; Z79.82 Long term (current) use of aspirin; J20.9 Acute bronchitis, unspecified; Y92.9 Unspecified place or not applicable
CPT/HCPCS: 36415; 71045-TC-FY; 80048; 80053; 81003; 81015; 82803; 82962; 83605; 84484; 85025; 85610; 85730; 87040; 87086; 93005; 94640; 96361; 96365; 96372; 96375; 99285-25; G0378; J7030; J7620